=== PATIENT | male | born 1965 | race Caucasian/White ===

== ENCOUNTER 2021-09-18 00:03 | Emergency (ER) | payer SELFPAY ==
[2021-09-18] MEDS ORDERED: Tetracaine HCl/PF 0.5% 4 ML Bottle EYERT ONE (00:24)
[2021-09-18] MEDS ORDERED: Fluorescein 1 MG Ophth Strip EYERT ONE (00:24)
--- NOTE | 2021-09-18 00:39 | EDM.PDOC ---
ED HPI GENERAL MEDICAL PROBLEM - General Chief Complaint: ENT Problem Stated Complaint: PAIN IN RIGHT EYE CAN NOT SEE Time Seen by Provider: 09/18/21 00:25 Source of Information: Reports: Patient, RN History Limitations: Reports: No Limitations - History of Present Illness INITIAL COMMENTS - FREE TEXT/NARRATIVE: ED with c/o dry scratchy sensation to right eye. States has prescription eye drops and Rx not available for refill today . Reports regular use of drops but fell asleep longer than planned and when woke up eyes dry and felt emily something stuck and tearing when opened eye. Onset yesterday, increased discomfort tonight. Vision right eye blurry. - Related Data Allergies Allergy/AdvReac Type Severity Reaction Status Date / Time No Known Allergies Allergy Verified 07/29/21 11:39 Home Meds: Home Meds Irbesartan [Avapro] 150 mg PO DAILY 07/29/21 [History] hydroCHLOROthiazide [Hydrochlorothiazide] 25 mg PO DAILY 07/29/21 [History] ED ROS ENT - Review of Systems Review Of Systems: Comprehensive ROS is negative, except as noted in HPI. ED EXAM, ENT - Physical Exam Exam: See Below Exam Limited By: No Limitations General Appearance: Alert, Moderate Distress Eye Exam: Right Eye: Other (tetracaine fluro stain corneal abrasion central. ), Bilateral Eye: Conjunctival Injection, EOMI, PERRL Ears: Normal External Exam, Hearing Grossly Normal Nose: Normal Inspection Mouth/Throat: Normal Inspection Head: Atraumatic, Normocephalic Neck: Full Range of Motion Respiratory/Chest: No Respiratory Distress, Lungs Clear Cardiovascular: Regular Rate, Rhythm Extremities: Normal Inspection Neurological: Alert, Oriented Psychiatric: Normal Affect Course - Vital Signs Last Recorded V/S: Last Vital Signs Temp 97.3 F 09/18/21 00:18 Pulse 67 09/18/21 00:18 Resp 18 09/18/21 00:18 BP 215/126 H 09/18/21 00:18 Pulse Ox 97 09/18/21 00:18 - Orders/Labs/Meds Meds: Medications Discontinued Medications Generic Name Dose Route Start Last Admin Trade Name Freq PRN Reason Stop Dose Admin Fluorescein Sodium 1 mg 09/18/21 00:24 Fluorescein 1 Mg Ophth Strip EYERT 09/18/21 00:25 ONETIME ONE Tetracaine HCl 1 ml 09/18/21 00:24 Tetracaine Hcl/Pf 0.5% 4 Ml Bottle EYERT 09/18/21 00:25 ASDIRECTED ONE Departure - Departure Time of Disposition: 00:54 Disposition: Home, Self-Care 01 Condition: Good Clinical Impression: Corneal abrasion, right Qualifiers: Encounter type: initial encounter Qualified Code(s): S05.01XA - Injury of conjunctiva and corneal abrasion without foreign body, right eye, initial encounter - Discharge Information *PRESCRIPTION DRUG MONITORING PROGRAM REVIEWED*: No *COPY OF PRESCRIPTION DRUG MONITORING REPORT IN PATIENT SASHA: No Instructions: Corneal Abrasion, [id number] Additional Instructions: Polymyxin B eye ointment 4 times daily to right eye Follup Wednesday with eye clinic to recheck tylenol 500mg every 4 hours as needed for discomfort avoid bright lights may use dark glasses indooors do not rub eyes may use cool washcloth to eyes as needed Sepsis Event Note (ED) - Evaluation Sepsis Screening Result: No Definite Risk - Focused Exam Vital Signs: Vital Signs Temp Pulse Resp BP Pulse Ox 09/18/21 00:18 97.3 F 67 18 215/126 H 97
[2021-09-18] MEDS ORDERED: Bacitracin/Polymyxin B Ophth Oint 3.5 GM Tube ONE (00:52)
== END 2021-09-18 01:06 | disposition home or self-care (01) ==
LOC: DL.ED 00:03
DX: S05.01XA Injury of conjunctiva and corneal abrasion without foreign body, right eye, initial encounter (principal); W22.09XA Striking against other stationary object, initial encounter
CPT/HCPCS: 99283; A9270

== ENCOUNTER 2025-03-05 05:59 | Day surgery (SDC) | payer BC, MEDICAID ==
[2025-03-05] MEDS ORDERED: Propofol 200 MG/20 ML SDV IV ONE (06:00)
[2025-03-05] MEDS: Lactated Ringers 1,000 ML IV SCH (06:15)
== END 2025-03-05 09:08 | disposition home or self-care (01) ==
LOC: DL.ENDO 05:59
PROVIDERS: ATTEND Internal Medicine Gastroenterology
DX: Z12.11 Encounter for screening for malignant neoplasm of colon (principal); D12.2 Benign neoplasm of ascending colon; I10 Essential (primary) hypertension
CPT/HCPCS: 45385; J2704; J7120